=== PATIENT | female | born 1965 | race Caucasian/White ===

== ENCOUNTER 2021-08-09 16:56 | Inpatient (IN) | payer OTHER ==
[~2021-08-09] VITALS: Ht 154.9 cm; Wt 64.9 kg
[2021-08-09] MEDS ORDERED: MECLIZINE 25MG TABLET PO ONE (17:45)
[2021-08-09] MEDS ORDERED: METFORMIN HCL 500MG TABLET PO ONE (17:45)
[2021-08-09 17:46] LABS: BASOPHILS % 0.5 % (0.0-2.0); EOSINOPHILS % 2.8 % (0.0-5.0); HEMATOCRIT. 38.9 % (36.0-48.0); HEMOGLOBIN. 12.9 g/dL (12.0-16.0); LYMPHOCYTES % 28.1 % (20.0-50.0); MEAN CORPUSCULAR HEMOGLOBIN 27.1 pg (28.0-32.0); MEAN CORPUSCULAR VOLUME 81.7 fL (81.0-99.0); MEAN PLATELET VOLUME 7.2 fl (7.4-10.4); MONOCYTES % 4.8 % (2.0-8.0); NEUTROPHILS % 63.8 % (40.0-76.0); PLATELET 281 x1000/uL (130-400); RED BLOOD CELL COUNT 4.76 mill/uL (4.2-5.4); RED CELL DISTRIBUTION WIDTH 14.8 % (11.6-14.6)
[2021-08-09 17:55] LABS: CHLORIDE 110 mEq/L (98-107)
[2021-08-09] MEDS ORDERED: ONDANSETRON HCL 4MG/2ML INJ IV NR (20:00)
[2021-08-09] MEDS ORDERED: LORAZEPAM 2MG/ML CPJ IV NR (20:00)
[2021-08-09] MEDS ORDERED: ASPIRIN 325MG TABLET PO ONE (23:00)
[2021-08-10] MEDS ORDERED: DEXTROSE 50% WATER 50ML SYRINGE IV PRN (08:30)
[2021-08-10] MEDS ORDERED: ONDANSETRON HCL 4MG/2ML INJ IV PRN (08:30)
[2021-08-10] MEDS ORDERED: ACETAMINOPHEN 325MG TABLET PO PRN (08:30)
[2021-08-10 11:50] VITALS: BP 118/58
[2021-08-10] MEDS ORDERED: METF-414 PO (11:50)
[2021-08-10 12:00] VITALS: BP 118/58
[2021-08-10] MEDS: INSULIN LISPRO 100 UNITS/ML SUBCUT SCH ×4 (12:00→21:00)
[2021-08-10] MEDS: BLOOD SUGAR DIAGNOSTIC STRIP TEST SCH ×3 (12:29→21:36)
[2021-08-10 16:00] VITALS: BP 101/62
[2021-08-10] MEDS ORDERED: MECLIZINE 25MG TABLET PO PRN (19:45)
[2021-08-10 20:00] VITALS: BP 100/61
[2021-08-11] VITALS (7 sets, daily range): BP systolic 102–115; BP diastolic 54–72
[2021-08-11 02:40] LABS: CLARITY URINE CLEAR (CLEAR); COLOR URINE YELLOW (YELLOW); KETONES URINE NEGATIVE (NEGATIVE); LEUKOCYTE ESTERASE URINE 1+ (NEGATIVE); NITRITE URINE NEGATIVE (NEGATIVE); OCCULT BLOOD URINE NEGATIVE (NEGATIVE); PH URINE 6.5 (4.5-8.0); PROTEIN URINE NEGATIVE (NEGATIVE); SPECIFIC GRAVITY URINE 1.008 (1.005-1.030); UROBILINOGEN URINE 0.2 E.U./dL (0.2-1.0)
[2021-08-11] MEDS: INSULIN LISPRO 100 UNITS/ML SUBCUT SCH ×4 (06:05→21:00)
[2021-08-11] MEDS: BLOOD SUGAR DIAGNOSTIC STRIP TEST SCH ×4 (06:05→21:00)
[2021-08-11] MEDS ORDERED: REGADENOSON 0.4 MG/5 ML IV NR (14:45)
[2021-08-12] VITALS: BP 111/63
[2021-08-12 04:00] VITALS: BP 104/57
[2021-08-12 05:30] VITALS: BP_SYST 110; BP_SYST 111; BP_DIAS 60; BP_DIAS 64; BP_DIAS 75
[2021-08-12] MEDS: INSULIN LISPRO 100 UNITS/ML SUBCUT SCH ×2 (06:54→12:40)
[2021-08-12] MEDS: BLOOD SUGAR DIAGNOSTIC STRIP TEST SCH ×2 (06:54→11:19)
[2021-08-12 08:00] VITALS: BP_SYST 112; BP_SYST 114; BP_DIAS 62; BP_DIAS 64; BP_DIAS 67
[2021-08-12 12:00] VITALS: BP_SYST 110; BP_SYST 112; BP_DIAS 61; BP_DIAS 62; BP_DIAS 64
[2021-08-12] MEDS ORDERED: REGADENOSON 0.4 MG/5 ML IV ONE (12:24)
== END 2021-08-12 14:50 | disposition home or self-care (01) | DRG 48 ==
LOC: ER 16:56 → MICUSO 08-10 03:55 → 8WST 08-10 12:19
PROVIDERS: ADMIT Internal Medicine; ATTEND Internal Medicine
DX: G90.8 Other disorders of autonomic nervous system (principal); E87.8 Other disorders of electrolyte and fluid balance, not elsewhere classified; I95.9 Hypotension, unspecified; E11.65 Type 2 diabetes mellitus with hyperglycemia; F17.210 Nicotine dependence, cigarettes, uncomplicated; F41.9 Anxiety disorder, unspecified; R00.1 Bradycardia, unspecified; Z20.822 Contact with and (suspected) exposure to COVID-19; R07.9 Chest pain, unspecified; R55 Syncope and collapse; Z71.6 Tobacco abuse counseling
CPT/HCPCS: 36415; 70551; 78452; 80048; 81003; 82962; 83036; 84484; 85025; 87426; 93005; 93017; 93306; 93880; 99285; A9500; J2060; J2405; J2785; J8597